=== PATIENT | female | born 1965 | race African-American/Black ===

== ENCOUNTER 2021-07-08 14:50 | Outpatient (CLI) | payer MEDICARE, SELFPAY ==
--- NOTE | ~2021-07-08 | US_ITS ---
US right upper quadrant INDICATION: Elevated liver enzymes. PROCEDURE: Realtime right upper abdominal ultrasound. COMPARISON: No prior studies for comparison. FINDINGS: The pancreas is normal without focal mass or pancreatic ductal dilation. Liver echotexture is increased, consistent with fatty infiltration. There is normal directional flow in the portal ve in. The gallbladder is normal without stones, gallbladder wall thickening or pericholecystic fluid. Comm on bile duct measures 3 mm. No sonographic Barraza's sign. Small gallbladder polyp. IMPRESSION: 1: Small gallbladder wall polyp. 2: Hepatic steatosis. Reviewed, dictated and finalized at location B.
== END 2021-07-08 14:51 | disposition home or self-care (01) ==
LOC: ANHIMG 14:55
PROVIDERS: PCP Internal Medicine; Visit Provider Internal Medicine
DX: R94.5 Abnormal results of liver function studies (principal); R74.8 Abnormal levels of other serum enzymes; K76.0 Fatty (change of) liver, not elsewhere classified; K82.4 Cholesterolosis of gallbladder
CPT/HCPCS: 76705

== ENCOUNTER 2023-04-06 19:30 | Observation (INO) | payer OTHER, SELFPAY ==
--- NOTE | ~2023-04-06 | XR_ITS ---
EXAMINATION: XR chest 1V portable Exam Date/Time: 04/06/2023 20:50 CDT HISTORY: weakness Comparison: 03/18/2016. RESULT: Lines, tubes, and devices: None. Lungs and pleura: Clear. Cardiomediastinal silhouette: Stable. Other: No acute osseous or upper abdominal finding. IMPRESSION: No acute cardiopulmonary process. Reviewed, dictated and finalized at location K.
[2023-04-06 19:29] VITALS: BP 130/75; PULSE 90; RESP 18; TEMP 36.6; O2SAT 100
[2023-04-06 19:39] LABS: Glucose Point of Care 119 mg/dl (65-105)
--- NOTE | 2023-04-06 20:15 | ECG_ITS ---
Measurements Intervals [place] Rate: 88 P: 34 ID: 144 QRS: 48 QRSD: 87 T: 98 QT: 446 QTc: 542 Interpretive Statements SINUS RHYTHM BORDERLINE R WAVE PROGRESSION, ANTERIOR LEADS BORDERLINE ST-T WAVE ABNORMALITY- ANT/HIGH LAT LEADS PROLONGED QT INTERVAL ABNORMAL ECG NO PREVIOUS ECG AVAILABLE FOR COMPARISON Electronically Signed On 04-07-2023 6:45:25 CDT by Olaf Almanza D.O.
[2023-04-06 20:54] LABS: Basophils Percent Auto 0.3 % (0.2-1.2); Eosinophils Absolute Auto 0.1 K/mm3 (0-0.3); Eosinophils Percent Auto 1.2 % (0-4.4); Hematocrit 42.9 % (37.0-47.0); Hemoglobin 13.8 g/dL (12.0-15.0); Immature Granulocyte Absolute 0.01 K/mm3 (0.00-0.031); Immature Granulocyte Percent A 0.2 % (0-0.5); Lymphocytes Absolute Auto 2.36 K/mm3 (0.9-3.2); Lymphocytes Percent Auto 39.8 % (18.3-44.2); Mean Corpuscular HGB Conc 32.2 g/dl (32-36); Mean Corpuscular Hemoglobin 30.2 pg (26-34); Mean Corpuscular Volume 93.9 fl (80-100); Mean Platelet Volume 8.9 fl (7.4-10.4); Monocytes Absolute Auto 0.5 K/mm3 (0.1-0.6); Monocytes Percent Auto 7.6 % (2.6-8.5); Neutrophils Percent Auto 50.9 % (45.5-73.1); Platelet Count Result 231 k/mm3 (150-375); Red Blood Count 4.57 M/mm3 (4.2-5.4); Red Cell Distribution Width 14.1 % (11.5-14.5); White Blood Count 5.9 K/mm3 (4.5-10.0)
[2023-04-06] MEDS: SODIUM CHLORIDE 0.9% IV 1,000 ML 999 ML IV CONT (20:59)
[2023-04-06 21:05] LABS: Lactic Acid Reflex 2.8 mmol/L (0.7-2.0)
[2023-04-06 21:09] LABS: Partial Thromboplastin Time 24.7 SECONDS (22.3-36.8); Prothrombin Time 13.2 Seconds (11.1-14.7)
[2023-04-06 21:16] LABS: Alanine Aminotransferase 19 U/L (6-35); Alkaline Phosphatase 94 U/L (38-126); Anion Gap 10 mmol/L (8-16); Aspartate Amino Transferase 29 U/L (14-36); Bilirubin,Total 0.3 mg/dL (0.2-1.3); Blood Urea Nitrogen 12 mg/dL (7-17); Calcium 8.6 mg/dL (8.4-10.2); Carbon Dioxide 29 mmol/L (22-30); Chloride 98 mmol/L (98-107); Estimated CRCL calculation 44 ml/min; Estimated Glomerular Filt Rate > 60; Glucose 83 mg/dL (65-110); Magnesium 1.6 mg/dL (1.6-2.3); Potassium 3.1 mmol/L (3.4-5.0); Sodium 137 mmol/L (137-145)
[2023-04-06 21:32] LABS: Troponin I 0.108 ng/mL (0.000-0.034)
--- NOTE | 2023-04-06 22:23 | ED.GENADULT ---
HPI - General Adult General Chief complaint: Weakness Stated complaint: BLOOD GLUCOSE PROBLEMS, LIGHTHEADEDNESS, WEAKNESS Time Seen by Provider: 04/06/23 20:06 History of Present Illness HPI narrative: Patient is a 57-year-old female who presents the emergency department with chief complaint of generalized weakness. Patient reports that she has been feeling weak and is very lethargic yes since yesterday patient reports that she has not really had a good appetite and has been feeling hot flashes the patient reports is not having any chest pain denies shortness of breath reports that she did do a blood sugar check at home and her blood sugars were in the 400s but when EMS arrived her blood sugar was not elevated. Related Data Allergies Allergy/AdvReac Type Severity Reaction Status Date / Time No Known Allergies Allergy Unknown Verified 04/06/23 19:39 Review of Systems Review of Systems: A 10 system review of systems was completed on the patient and is negative except for what is stated in the HPI. Nursing and ancillary documentation was reviewed. [facility] Family History Family History Sibling Family history of mental disorder Hypertension Patient's brother is in good health Family history of seizure disorder Patient's sister is Mother Depression Hypertension Family history of osteoarthritis Father Family history of lung cancer, Onset Age: 50 Patient's father is Social History Social History Second hand tobacco smoke exposure: No Alcohol intake: never Exam Narrative: GENERAL: Well-appearing, well-nourished, and in no acute distress. HEAD: Normocephalic, atraumatic. EYES: PERRLA and EOMI. ENT: Nares clear, no rhinorrhea or epistaxis. Mucous membranes moist. NECK: Supple. CHEST: Clear to auscultation. No respiratory distress. HEART: Regular rate and rhythm. No murmur heard. Normal peripheral pulses. ABDOMEN: Soft, nontender, nondistended, normal active bowel sounds. EXTREMITIES: Normal range of motion. No edema. SKIN: Warm, dry, no rash. NEURO: No focal deficits. Alert and oriented x3. PSYCH: Normal mood and affect. Course Vital Signs Vital signs: Vital Signs Temperature 36.6 C 04/06/23 19:29 Pulse Rate 90 04/06/23 19:29 Respiratory Rate 18 04/06/23 19:29 Blood Pressure 130/75 04/06/23 19:29 Pulse Oximetry 100 04/06/23 19:29 Oxygen Delivery Room Air 04/06/23 19:29 Temperature 36.6 C 04/06/23 19:29 Pulse Rate 90 04/06/23 19:29 Respiratory Rate 18 04/06/23 19:29 Blood Pressure 130/75 04/06/23 19:29 Pulse Oximetry 100 04/06/23 19:29 Oxygen Delivery Room Air 04/06/23 19:29 Medical Decision Making MDM Narrative Medical decision making narrative: Differential diagnosis includes dehydration, electrolyte abnormality, ACS, pneumonia, UTI, acute kidney injury Laboratory studies were obtained and the patient showed a CBC with a white count of 5.9 hemoglobin 10.8 electrolytes showed a sodium of 137 potassium 3.1 BUN was 12 and creatinine was 1.0 patient had a slightly elevated lactate at 2.8 liver enzymes are within normal limits at a bilirubin of 0.3 AST was 29 and ALT of 19 patient had a glucose of 83 on her electrolytes troponin was elevated at 0.108 Chest x-ray showed no focal infiltrate EKG showed sinus rhythm rate of [address] elevation or ST depression the patient will be observed in the hospital overnight with serial cardiac markers and the patient will be given 324 mg of ASA. Vital Signs Vital Signs: Vital Signs Temperature 36.6 C 04/06/23 19:29 Pulse Rate 90 04/06/23 19:29 Respiratory Rate 18 04/06/23 19:29 Blood Pressure 130/75 04/06/23 19:29 Pulse Oximetry 100 04/06/23 19:29 Oxygen Delivery Room Air 04/06/23 19:29 Temperature 36.6 C 07
[2023-04-06 22:56] LABS: Appearance Urine Clear (Clear); Bacteria Urine 1+ /hpf; Bilirubin Urine Negative (Negative); Blood Urine Negative (Negative); Color Urine Yellow (Yellow); Glucose Urine UA 3+ mg/dL (Negative); Ketones Urine Negative (Negative); Leukocyte Esterase Ur Negative LEU/UL (Negative); Nitrate Urine Positive (Negative); Non Pathogenic Casts 0-2; Protein Urine Negative (Negative); RBC Urine 0-2 /hpf (0-2); Specific Grav Ur 1.015 (1.001-1.035); Squamous Epithelial Cell Urine Occasional /hpf (Few); Urobilinogen Urine 0.2 mg/dL (<2.0); WBC Urine 0-5 /hpf
[2023-04-06 23:02] LABS: Add Urine Microscopic? YES
[2023-04-06] MEDS: ASPIRIN 81 MG CHEWABLE TABLET 324 MG PO (23:41)
[2023-04-06 23:44] LABS: Troponin I 0.108 ng/mL (0.000-0.034)
[2023-04-06 23:50] LABS: Reflex Lactic Acid Yes or No Add Lactic
[2023-04-07] VITALS (8 sets, daily range): BP systolic 110–143; BP diastolic 66–80; PULSE 72–84; RESP 14–16; TEMP 36.1–36.6; O2SAT 96–98; BMI 23.1
--- NOTE | 2023-04-07 | ECHO_ITS ---
Patient Info Name: Theresa Owusu Age: 57 years : 1965 Gender: Female Ht: 62 in Wt: 135 lbs BSA: 1.65 m2 HR: 76 bpm BP: 137 / 80 mmHg Heart Rhythm: Sinus Rhythm Technical Quality: Good Exam Date: 04/07/2023 10:39 AM Exam Location: [facility] Patient Status: Outpatient Admit Date: 04/06/2023 Staff Ordering Physician: Jessica Alejandro MD Dragline Operator Helper: Xavier Spencer RDCS Attending Provider: Darek Love MD Exam Type: CA echo doppler color flow Study Info Indications - CAD Complete two-dimensional, color flow and Doppler transthoracic echocardiogram is performed. Summary 1. Complete two-dimensional, color flow and Doppler transthoracic echocardiogram is performed. 2. Left ventricular chamber dimension is normal. 3. Left ventricular systolic function is normal, estimated at 65-70%. 4. There is mildly increased left ventricular wall thickness. 5. The left ventricular diastolic function is grade I diastolic dysfunction. 6. Left atrial chamber dimension is mildly enlarged. 7. There is mild mitral valve regurgitation. 8. There is mild tricuspid valve regurgitation. Left Ventricle Left ventricular chamber dimension is normal. Left ventricular systolic function is normal, estimated at 65-70%. There is mildly increased left ventricular wall thickness. The left ventricular diastolic function is grade I diastolic dysfunction. Right Ventricle Right ventricular chamber dimension is normal. Right ventricular systolic function is normal. Left Atria Left atrial chamber dimension is mildly enlarged. Right Atria Right atrial chamber dimension is normal. Atrial Septum Intact interatrial septum visualized by color flow imaging. Aortic Valve The aortic valve is trileaflet. There is no aortic valve sclerosis. There is no aortic valve stenosis. There is trace aortic valve regurgitation. Pulmonic Valve The pulmonic valve is normal. There is no pulmonic valve stenosis. There is trace pulmonic regurgitation. Mitral Valve The mitral valve has thickened leaflets. There is no mitral valve stenosis. There is mild mitral valve regurgitation. Tricuspid Valve The tricuspid valve leaflets are normal. There is no significant tricuspid valve stenosis. There is mild tricuspid valve regurgitation. No pulmonary hypertension, estimated pulmonary arterial systolic pressure is 12 mmHg. Pericardium/Pleural The pericardium appears normal. There is no pericardial effusion. Inferior Vena Cava Normal inferior vena cava with <50% collapse upon inspiration consistent with elevated right atrial pressure, 10 mmHg. Aorta The aortic root size at the sinus of Valsalva is normal. Left Ventricular Outflow Tract Name Value Normal LVOT 2D LVOT Diameter 1.9 cm LVOT Doppler LVOT Peak Gradient 4 mmHg LVOT Mean Gradient 2 mmHg LVOT VTI 23 cm LVOT VTI/AV VTI Ratio 0.8 LVOT Stroke Volume 65 ml LVOT CO 3.8 l/min LVOT CI 2.3 l/min/m2 Pulmonic Valve
[2023-04-07 00:32] LABS: Lactic Acid 1.2 mmol/L (0.7-2.0)
--- NOTE | 2023-04-07 02:04 | ADMGEN ---
This patient, Theresa Owusu, was admitted to IMU Room 213-01. Patient/family oriented to hospital policies and general routines including ID bracelet, bed and alarms, visiting hours, pain management, procedures, bathroom and other care routines, personal items, smoking policy, room service/diet, and visiting hours. Information on how to activate the Rapid Response Team has been discussed. Patient/Family are encouraged to report perceived risks to care and to ask questions if they do not understand what they are told or what they should do.
[2023-04-07 02:47] LABS: Procalcitonin 0.1 ng/mL
[2023-04-07 06:25] LABS: Troponin I 0.099 ng/mL (0.000-0.034)
[2023-04-07] MEDS: CHLORTHALIDONE 25 MG TABLET PO (09:47)
[2023-04-07] MEDS: BACLOFEN 10 MG TABLET PO (09:47)
[2023-04-07] MEDS: LOSARTAN POTASSIUM 100 MG TABLET PO (09:47)
[2023-04-07] MEDS: POTASSIUM CHLORIDE 20 MEQ PACKET (FOR LIQUID) PO (09:48)
[2023-04-07] MEDS: CLOPIDOGREL BISULFATE 75 MG TABLET PO (09:49)
[2023-04-07] MEDS: PARoxetine 20 MG TABLET 40 MG PO (09:49)
[2023-04-07] MEDS: ASPIRIN 81 MG CHEWABLE TABLET PO (09:49)
[2023-04-07] MEDS: metFORMIN HCL 500 MG TABLET 1000 MG PO (09:49)
[2023-04-07] MEDS: EMPAGLIFLOZIN 25 MG TABLET PO (09:49)
[2023-04-07] MEDS: ATORVASTATIN 40 MG TABLET PO (09:49)
--- NOTE | 2023-04-07 10:03 | PM.SD2 ---
Same Day Admit/Disch: HPI History of Present Illness Chief complaint: Gerneralized Weakness/Elevated Troponin Narrative: Theresa Ouwsu is a 57 year old female who presented to the emergency department with chief complaint of generalized weakness.? Patient reports that she has been feeling weak and is very lethargic since yesterday. patient reports that she has not really had a good appetite and has been feeling hot flashes.the patient denies chest pain, shortness of breath. reports that she did do a blood sugar check at home and her blood sugars were in the 400s but when EMS arrived her blood sugar was not elevated. Her labs were normal except for mild troponin elevation. This morning she has a completely asymptomatic. Will get an echocardiogram and then discharge her home [facility] Family History Family History Sibling Family history of mental disorder Hypertension Patient's brother is in good health Family history of seizure disorder Patient's sister is Mother Depression Hypertension Family history of osteoarthritis Father Family history of lung cancer, Onset Age: 50 Patient's father is Social History Social History Smoking packs per day: 1.5 Smoking cigarettes per day: 30.0 Years smoked: 35 Smoking pack-years: 52.50 Smoking status: Current every day smoker Tobacco type: cigarettes Second hand tobacco smoke exposure: No Alcohol intake: current Drinks per week: 14 Substance use: never Substance use type: does not use Lack of Transportation: No Lack of Food: Never True Current Housing: I Have Housing Concerned About Future Housing: No Difficulty Paying Gas/Electric Bills: No Difficulty Paying for Meds: No Currently Unemployed: No Education: High School Diploma/GED Difficulty w/ Childcare or Family Care: No Spiritual care concerns: No Same Day Admit/Disch: Med Pre-admit Medications Home Medications Medication Instructions Recorded Confirmed Type amlodipine 5 mg tablet 5 mg PO DAILY 04/07/23 04/07/23 History atorvastatin 40 mg tablet 40 mg PO DAILY 04/07/23 04/07/23 History baclofen 10 mg tablet 10 mg PO DAILY 04/07/23 04/07/23 History chlorthalidone 25 mg tablet 25 mg PO DAILY 04/07/23 04/07/23 History clopidogrel 75 mg tablet 75 mg PO DAILY 04/07/23 04/07/23 History empagliflozin 25 mg tablet 25 mg PO DAILY 04/07/23 04/07/23 History (Jardiance) famotidine 40 mg tablet 40 mg PO DAILY 04/07/23 04/07/23 History insulin glargine 100 unit/mL (3 25 unit subcut HS 04/07/23 04/07/23 History mL) subcutaneous pen (Basaglar KwikPen U-100 Insulin) losartan 100 mg tablet 100 mg PO DAILY 04/07/23 04/07/23 History metformin 1,000 mg tablet 1,000 mg PO BID 04/07/23 04/07/23 History omeprazole 20 mg capsule,delayed 20 mg PO DAILY 04/07/23 04/07/23 History release paroxetine HCl 40 mg tablet 40 mg PO DAILY 04/07/23 04/07/23 History quetiapine 300 mg tablet,extended 300 mg PO DAILY 04/07/23 04/07/23 History release 24 hr trazodone 100 mg tablet 100 mg PO QHS 04/07/23 04/07/23 History Exam Narrative: GENERAL: Well-appearing, well-nourished, and in no acute distress. HEAD: Normocephalic, atraumatic. EYES: PERRLA and EOMI. ENT: Nares clear, no rhinorrhea or epistaxis. Mucous membranes moist. NECK: Supple. CHEST: Clear to auscultation. No respiratory distress. HEART: Regular rate and rhythm. No murmur heard. Normal peripheral pulses. ABDOMEN: Soft, nontender, nondistended, normal active bowel sounds. EXTREMITIES: Normal range of motion. No edema. SKIN: Warm, dry, no rash. NEURO: No focal deficits. Alert and oriented x3. PSYCH: Normal mood and affect. DS: Data Data Completed and Pending Labs on day of discharge: Labs from last 24 hours 04/07/23 04/07/23 04/06/23 05:33 00:16 22:56 WBC RBC
--- NOTE | 2023-04-07 12:23 | PM.CNCAR ---
Assessment and Plan Assessment and plan (1) Elevated troponin: Code(s): R77.8 - Other specified abnormalities of plasma proteins Status: Acute Assessment and Plan: Elevated troponins of uncertain etiology. No significant rise or fall. Not related to acute coronary syndrome. Echocardiogram is pending. Continue clopidogrel, statin, ARB. Further workup depending on the results of the echo (2) Hypertension: Code(s): I10 - Essential (primary) hypertension Status: Acute Assessment and Plan: Continue home BP meds including those listed above as well as amlodipine (3) Diabetes: Code(s): E11.9 - Type 2 diabetes mellitus without complications Status: Acute Assessment and Plan: Per hospitalist (4) Generalized weakness: Code(s): R53.1 - Weakness Status: Acute Assessment and Plan: Possibly viral syndrome (5) Hypokalemia: Code(s): E87.6 - Hypokalemia Status: Acute Assessment and Plan: Replace with KCl 40 mEq p.o. x1 History of Present Illness History of Present Illness Consult date/time: 04/07/23 12:23 Requesting physician: Haroon Talley MD Reason For Visit: Gerneralized Weakness/Elevated Troponin Narrative: Reason for consultation: Weakness, elevated troponin Date of service 04/07/2023 Requesting provider: Dr. Talley History: Patient is a 57-year-old female who does not have known cardiac history who presented to hospital because of generalized weakness. She has had some fevers subjectively. She states that she felt weak and tired in the process of workup a troponin was drawn for not completely understood reasons but was minimally elevated. Follow-up troponins have essentially been unchanged. EKG shows no acute ST or T-wave abnormalities. She denies any exertional chest pain. Does feel some palpitations. Occasional dizziness is complained of. No paroxysmal nocturnal dyspnea, orthopnea, edema, syncope or unusual shortness of breath. Review of Systems Review of Systems: All systems reviewed & are unremarkable except as noted in HPI and below Constitutional: Constitutional: Denies body ache(s) Eyes: Eyes: Denies blurry vision ENT: Reports Normal hearing present Cardiovascular: Cardiovascular: Denies chest pain Comments: Flutters are felt Respiratory: Respiratory: Denies dyspnea Gastrointestinal: Gastrointestinal: Denies abdominal pain Genitourinary: Genitourinary: Denies hematuria Musculoskeletal: Musculoskeletal: Denies myalgias Integumentary/Breasts: Skin/Breast: Denies skin pain Neurologic: Denies Abnormal speech present Psychiatric: Psychiatric: Denies anxiety Endocrine: Endocrine: Denies excessive sweating Hematologic/Lymphatic: Hematologic/Lymphatic: Denies easy bleeding Allergic/Immunologic: Allergic/Immunologic: Denies GI upset with certain foods PMFSH Past Medical History Medical History Diabetes Hypertension Family History Family History Sibling Family history of mental disorder Hypertension Patient's brother is in good health Family history of seizure disorder Patient's sister is Mother Depression Hypertension Family history of osteoarthritis Father Family history of lung cancer, Onset Age: 50 Patient's father is Social History Social History Smoking packs per day: 1.5 Smoking cigarettes per day: 30.0 Years smoked: 35 Smoking pack-years: 52.50 Smoking status: Current every day smoker Tobacco type: cigarettes Second hand tobacco smoke exposure: No Alcohol intake: current Drinks per week: 14 Substance use: never Substance use type: does not use Lack of Transportation: No Lack of Food: Never True Current Housing: I
[2023-04-07] MEDS: POTASSIUM CHLORIDE 20 MEQ ER TABLET 40 MEQ PO (15:49)
== END 2023-04-07 15:54 | disposition home or self-care (01) ==
LOC: ANHED 23:29 → ANHIMU 04-07 00:12
PROVIDERS: Admitting Provider Hospitalist; Emergency Provider Emergency Medicine; PCP Internal Medicine; Visit Provider Hospitalist
DX: R77.8 Other specified abnormalities of plasma proteins (principal); I11.9 Hypertensive heart disease without heart failure; E11.9 Type 2 diabetes mellitus without complications; R53.1 Weakness; E87.6 Hypokalemia; I08.1 Rheumatic disorders of both mitral and tricuspid valves; R94.31 Abnormal electrocardiogram [ECG] [EKG]; R63.0 Anorexia; Z68.23 Body mass index [BMI] 23.0-23.9, adult; R74.02 Elevation of levels of lactic acid dehydrogenase [LDH]; F17.210 Nicotine dependence, cigarettes, uncomplicated; F10.90 Alcohol use, unspecified, uncomplicated; Z79.02 Long term (current) use of antithrombotics/antiplatelets; Z79.84 Long term (current) use of oral hypoglycemic drugs; Z79.4 Long term (current) use of insulin; Z79.899 Other long term (current) drug therapy
CPT/HCPCS: 36415; 71045; 80053; 81001; 82948; 83605; 83735; 84145; 84484; 85025; 85610; 85730; 93005; 93306; 96360; 96361; 99285; A9270; G0378; J7030

== ENCOUNTER 2023-07-05 13:07 | Emergency (ER) | payer OTHER, SELFPAY ==
[2023-07-05] VITALS (11 sets, daily range): BP systolic 154–200; BP diastolic 81–103; PULSE 87–93; RESP 16–38; TEMP 36.4; O2SAT 95–98
--- NOTE | ~2023-07-05 | XR_ITS ---
XR ribs RT 2V DATE: 07/05/2023 13:50 INDICATION: Patient fell last night and struck a couch. Right sided pain TECHNIQUE: COMPARISON: None FINDINGS: Displaced recent fractures of the lateral aspect of the right fifth and sixth ribs. Normal heart size. No hilar or mediastinal enlargement. No pulmonary infiltrate or consolidation or p leural effusion or pneumothorax is detected. Levoscoliosis and degenerative spurring of the thoracolumbar spine. IMPRESSION: Recent displaced right lateral fifth and sixth rib fractures Reviewed, dictated and finalized at location B.
--- NOTE | ~2023-07-05 | CT_ITS ---
EXAMINATION: CT abdomen pelvis w con DATE: 07/05/2023 16:50 INDICATION: Trauma with right upper quadrant pain post fall TECHNIQUE: Computed tomography (CT) of the abdomen and pelvis was performed with 100 mL Omnipaque-350 intravenous contrast. Automated exposure control and iterative reconstruction technique were employe d. The dose-length product was 259.18 mGy-cm. COMPARISON: None FINDINGS: Mild dependent atelectasis in the bilateral lower lobes. Displaced anterior right fifth and minimally displaced anterior right sixth rib fractures. There is associated soft tissue swelling of the overly ing serratus interior muscles and a very small subpleural hematoma. No pleural effusion or pneumothor ax in the visualized lower chest. Heart size is normal. Atherosclerotic coronary artery calcification is. No pericardial effusion. Liver, gallbladder, spleen, pancreas and left adrenal gland are normal. 4.5 x 1.9 x 1.9 cm right adre nal mass. Small region of cortical scarring and subcentimeter cysts at both kidneys. Splenorenal shanthi ateral. There appears to be AP narrowing of the splenic vein near its confluence with the superior me senteric vein potentially due to compression between the neck of the pancreas and the superior mesent anson artery No bowel obstruction. Bladder is normal. Fibroid uterus including calcified likely chroni ambrose degenerated uterine fibroids. Bilateral adnexa are unremarkable. No free intraperitoneal gas or fluid. No pathologically enlarged abdominal or pelvic lymphadenopathy. Mild S-shaped curvature of th e thoracolumbar spine with mild spondylosis. IMPRESSION: 1. Anterior right fifth and sixth rib fractures with very small subpleural chest wall hematoma. 2. No acute intra-abdominal/pelvic process. 3. 4.5 x 1.9 x 1 cm right adrenal mass which the absence of known prior malignancy most likely repres ents an adenoma. Consider follow-up adrenal protocol pre and postcontrast MRI. 4. Splenorenal collateral which could be due extrinsic compression of the splenic vein between the pa ncreas near its confluence with the superior mesenteric artery. Reviewed, dictated and finalized at location A. IMPRESSION: 1. Anterior right fifth and sixth rib fractures with very small subpleural ches t wall hematoma. 2. No acute intra-abdominal/pelvic process. 3. 4.5 x 1.9 x 1 cm right adrenal mass which the absence of known prior maligna ncy most likely represents an adenoma. Consider follow-up adrenal protocol pre and postcontrast MRI. 4. Splenorenal collateral which could be due extrinsic compression of the splen ic vein between the pancreas near its confluence with the superior mesenteric a rtery.
--- NOTE | 2023-07-05 13:21 | ECG_ITS ---
Measurements Intervals [place] Rate: 86 P: 71 MA: 166 QRS: 55 QRSD: 98 T: 71 QT: 396 QTc: 476 Interpretive Statements SINUS RHYTHM POOR R-WAVE PROGRESSION QT PROLONGATION ABNORMAL ECG COMPARED TO ECG 04/06/2023 19:37:58 NO SIGNIFICANT CHANGE Electronically Signed On 07-05-2023 17:11:51 CDT by Gunner Goldstein M.D.
[2023-07-05 13:32] LABS: Basophils Percent Auto 0.3 % (0.2-1.2); Hematocrit 39.8 % (37.0-47.0); Immature Granulocyte Absolute 0.03 K/mm3 (0.00-0.031); Immature Granulocyte Percent A 0.2 % (0-0.5); Mean Corpuscular HGB Conc 32.7 g/dl (32-36); Mean Corpuscular Hemoglobin 30.7 pg (26-34); Mean Corpuscular Volume 94.1 fl (80-100); Mean Platelet Volume 8.7 fl (7.4-10.4); Monocytes Absolute Auto 0.7 K/mm3 (0.1-0.6); Monocytes Percent Auto 5.9 % (2.6-8.5); Neutrophils Percent Auto 83.6 % (45.5-73.1); Platelet Count Result 251 k/mm3 (150-375); Red Blood Count 4.23 M/mm3 (4.2-5.4)
[2023-07-05 13:42] LABS: Alanine Aminotransferase 52 U/L (6-35); Albumin Level 4.5 g/dL (3.5-5.1); Alkaline Phosphatase 76 U/L (38-126); Anion Gap 6 mmol/L (8-16); Aspartate Amino Transferase 119 U/L (14-36); Bilirubin,Total 0.5 mg/dL (0.2-1.3); Blood Urea Nitrogen 10 mg/dL (7-17); Calcium 9.3 mg/dL (8.4-10.2); Carbon Dioxide 33 mmol/L (22-30); Chloride 100 mmol/L (98-107); Estimated CRCL calculation 48 ml/min; Estimated Glomerular Filt Rate > 60; Glucose 103 mg/dL (65-110); Sodium 139 mmol/L (137-145)
--- NOTE | 2023-07-05 15:55 | ED.DIZZY ---
HPI - Dizziness General Chief Complaint: Dizziness Stated Complaint: rib pain Time Seen by Provider: 07/05/23 15:44 History of Present Illness HPI Narrative: 58-year-old female with a history of CVA x3 and residual left-sided weakness reports for evaluation for right-sided rib pain after a fall that occurred yesterday. Patient states yesterday she was walking to her kitchen when she began to feel lightheaded and fell to the ground, landing on her right side. She reports pain to the right ribs that is worse with inspiration and coughing. She denies hitting her head or losing consciousness. She denies other injuries acquired. She states she has a history of recent falls due to feeling dizzy . She does not ambulate with a walker or cane. Reports taking ibuprofen this morning with some improvement. No vision changes, new onset focal numbness or weakness, or chest pain. She does feel short of breath since the injury. Of note, patient states she got over her recent GI illness last week with nausea, vomiting and diarrhea Related Data Home Medications Medication Instructions Recorded Confirmed atorvastatin 40 mg tablet 40 mg PO DAILY 04/07/23 04/07/23 baclofen 10 mg tablet 10 mg PO DAILY 04/07/23 04/07/23 chlorthalidone 25 mg tablet 25 mg PO DAILY 04/07/23 04/07/23 clopidogrel 75 mg tablet 75 mg PO DAILY 04/07/23 04/07/23 empagliflozin 25 mg tablet 25 mg PO DAILY 04/07/23 04/07/23 (Jardiance) insulin glargine 100 unit/mL (3 25 unit subcut HS 04/07/23 04/07/23 mL) subcutaneous pen (Basaglar KwikPen U-100 Insulin) losartan 100 mg tablet 100 mg PO DAILY 04/07/23 04/07/23 metformin 1,000 mg tablet 1,000 mg PO BID 04/07/23 04/07/23 omeprazole 20 mg capsule,delayed 20 mg PO DAILY 04/07/23 04/07/23 release paroxetine HCl 40 mg tablet 40 mg PO DAILY 04/07/23 04/07/23 quetiapine 300 mg tablet,extended 300 mg PO DAILY 04/07/23 04/07/23 release 24 hr trazodone 100 mg tablet 100 mg PO QHS 04/07/23 04/07/23 Allergies Allergy/AdvReac Type Severity Reaction Status Date / Time No Known Allergies Allergy Unknown Verified 07/05/23 13:08 Review of Systems Review of Systems: CONSTITUTIONAL: Denies fever, chills EYES: Denies visual changes, redness, or discharge. ENT: Denies rhinorrhea, congestion, sore throat, or otalgia. CARDIOVASCULAR: See HPI RESPIRATORY: See HPI GASTROINTESTINAL: Denies abdominal pain, nausea, vomiting, or diarrhea. GENITOURINARY: Denies dysuria or hematuria. SKIN: Denies rash or itching. MUSCULOSKELETAL: Denies back pain, joint pain, or myalgia. NEUROLOGIC: See HPI PSYCHIATRIC: Denies anxiety or depression. [facility] Past Medical History Medical History Diabetes Hypertension Family History Family History Sibling Family history of mental disorder Hypertension Patient's brother is in good health Family history of seizure disorder Patient's sister is Mother Depression Hypertension Family history of osteoarthritis Father Family history of lung cancer, Onset Age: 50 Patient's father is Social History Social History Smoking packs per day: 1.5 Smoking cigarettes per day: 30.0 Years smoked: 35 Smoking pack-years: 52.50 Smoking status: Current every day smoker Tobacco type: cigarettes Second hand tobacco smoke exposure: No Alcohol intake: current Drinks per week: 14 Substance use: never Substance use type: does not use Lack of Transportation: No Lack of Food: Never True Current Housing: I Have Housing Concerned About Future Housing: No Difficulty Paying Gas/Electric Bills: No Difficulty Paying for Meds: No Currently Unemployed: No Education: High School Diploma/GED Difficulty w/ Childcare or Family Care: No Spiritual care concerns: No
[2023-07-05] MEDS: HYDROcodone/acetaminophen (*CRX) 5-325 MG TABLET 1 TAB PO (16:08)
[2023-07-05 16:48] LABS: Magnesium 1.7 mg/dL (1.6-2.3)
[2023-07-05 17:00] LABS: NT Pro B Type Natriuretic Pept 793 pg/mL (19.9-100); Troponin I < 0.012 ng/mL (0.000-0.034)
--- NOTE | 2023-07-05 17:02 | PC.NURSE ---
Pt states she went to the bathroom before she came back to a room and is unable to go at this time
[2023-07-05 18:14] LABS: Appearance Urine Clear (Clear); Bacteria Urine 4+ /hpf; Bilirubin Urine Negative (Negative); Blood Urine Negative (Negative); Color Urine Yellow (Yellow); Glucose Urine UA 3+ mg/dL (Negative); Ketones Urine Negative (Negative); Leukocyte Esterase Ur Trace LEU/UL (Negative); Nitrate Urine Positive (Negative); Non Pathogenic Casts 0-2; Protein Urine 1+ mg/dL (Negative); RBC Urine 0-2 /hpf (0-2); Squamous Epithelial Cell Urine Occasional /hpf (Few); Urobilinogen Urine 0.2 mg/dL (<2.0); WBC Urine 21-50 /hpf
[2023-07-05 18:15] LABS: Specific Grav Ur 1.048 (1.001-1.035)
[2023-07-05 18:16] LABS: Add Urine Microscopic? YES
== END 2023-07-05 18:20 | disposition home or self-care (01) ==
PROVIDERS: Emergency Medicine; Physician Assistant; Emergency Provider Emergency Medicine; PCP Internal Medicine
DX: S22.41XA Multiple fractures of ribs, right side, initial encounter for closed fracture (principal); E27.8 Other specified disorders of adrenal gland; R74.01 Elevation of levels of liver transaminase levels; I69.954 Hemiplegia and hemiparesis following unspecified cerebrovascular disease affecting left non-dominant side; I69.992 Facial weakness following unspecified cerebrovascular disease; E11.9 Type 2 diabetes mellitus without complications; I10 Essential (primary) hypertension; F17.210 Nicotine dependence, cigarettes, uncomplicated; Z79.4 Long term (current) use of insulin; Z79.84 Long term (current) use of oral hypoglycemic drugs; R94.31 Abnormal electrocardiogram [ECG] [EKG]; I87.8 Other specified disorders of veins; W18.39XA Other fall on same level, initial encounter
CPT/HCPCS: 36415; 71100; 74177; 80053; 81001; 83735; 83880; 84484; 85025; 87086; 87147; 87181; 87186; 93005; 99284; A9270; Q9967